=== PATIENT | female | born 1985 | race Caucasian/White ===

== ENCOUNTER → 2016-06-19 | Outpatient (CLI) | payer BC ==
[~2016-06-19] MED LIST: BACTRIM DS 8001 TA1 PO; BACTRIM DS 8001 TAB PO; LORTAB 5/500 501 TAB PO; NOMEDS *; PYRIDIUM 200MG200 MG PO; SEPTRA DS 800 M1 TAB PO; TORADOL10 M1 PO; ULTRAM50 MG PO
[2016-06-21 18:40] LABS: Neisseria gonorrhoeae, NAA Negative (Negative)
== END ==
LOC: LAB 17:34
PROVIDERS: Nurse Practitioner Obstetrics & Gynecology
DX: Z72.51 High risk heterosexual behavior (principal); N92.6 Irregular menstruation, unspecified